=== PATIENT | female | born 1995 | race African-American/Black ===

== ENCOUNTER 2018-09-04 12:32 | Emergency (ER) | payer SELFPAY ==
[2018-09-04 13:42] LABS: Pregnancy Test - Urine (BHCG) Negative (Negative); Pregu Control Background? CLEAR/WHITE (CLR/WHITE); Pregu Control Bar Appear? YES (CONTROL BAR)
[2018-09-04 13:43] LABS: Bilirubin Negative (Negative); Blood, Urine Negative (Negative); Clarity Clear (Clear); Glucose, Urine (Dipstick) Negative (Negative); Leukocyte Negative (Negative); Nitrite Negative (Negative); Protein, Urine (Dipstick) Negative (Neg-Trace); Specific Gravity 1.029 (1.002-1.036); Urobilinogen 0.2 mg/dL (0.2-1.0); pH, Urine 6.5 (5.0-9.0)
[2018-09-04 13:44] LABS: Specific Gravity, Urine 1.029 (1.002-1.036)
[2018-09-04] MEDS ORDERED: Azithromycin 250 MG TAB ONE (13:57)
[2018-09-04] MEDS ORDERED: Lidocaine 1% MPF 2 ML VIAL ONE (13:57)
[2018-09-04] MEDS ORDERED: metroNIDAZOLE 500 MG TAB ONE (13:57)
[2018-09-04] MEDS ORDERED: cefTRIAXone\\ROCEPHIN 250 MG VIAL ONE (13:57)
[2018-09-06 05:30] LABS: Chlamydia by PCR Not Detected (NotDetected); GC by PCR Not Detected (NotDetected)
== END 2018-09-04 14:28 | disposition home or self-care (01) ==
LOC: SCSER 12:32
DX: N76.0 Acute vaginitis (principal); F41.9 Anxiety disorder, unspecified; Z79.899 Other long term (current) drug therapy
CPT/HCPCS: 81003; 81025; 87480; 87491; 87510; 87591; 87660; 96372; J0696